=== PATIENT | female | born 1940 | race Caucasian/White ===

== ENCOUNTER 2017-08-07 12:16 | Inpatient (IN) | payer BC, OTHER ==
[~2017-08-07] VITALS: Ht 170.2 cm; Wt 68.9 kg
[~2017-08-07 12:16] MED LIST: ADVIN50/60 INH; ALBUAER19 INH; ASPI1TAB83 PO; CALCTAB5 PO; LINA1CAP2 PO; MULT1CAP7 PO; SIMV20TA2 PO
--- NOTE | 2017-08-07 13:03 | EMERGENCY ROOM VISIT NOTE ---
History Report prepared by Iqra: Yazan Simpson Under the Supervision of: Dr. Emilie Frey D.O. First contact with patient: 12:52 Chief Complaint: CONFUSION Stated Complaint: DISORIENTED, WORSENING PHYSICAL ABILITY History of Present Illness The patient is a 77 year old female with a history of Alzheimer's who presents to the Emergency Room from the [facility] with worsening confusion recently. Per the patient's daughter, she was called by the [facility] suggesting an evaluation due to the patient's rapid decline. They wanted to rule-out a mini stroke or UTI. The patient was incontinent of her bowels last night, which is not typically normal, but she did have colorectal cancer years ago. The patient was noted to have difficulty doing simple tasks, per the nursing staff. Per the patient's daughter, she has never seen the patient like this before. The patient denies any current pain, nausea, shortness of breath, or headaches. She recently gave up smoking a month ago, and has been noted to be coughing less since then. She saw her primary care physician yesterday for a physical. Pt's daughter denies any trauma/falls were reported to her by staff. Pt denies any falls. Source of History: patient, family, nursing staff Onset: Recently Position: other (global - confusion) Symptom Intensity: difficulty doing simple tasks Timing: worsening Associated Symptoms: No headache, No SOB, No nausea Note: Associated symptoms: Incontinent of bowels last night. Rapid decline. Denies current pain. Review of Systems See HPI for pertinent positives & negatives. A total of 10 systems reviewed and were otherwise negative. Past Medical & Surgical Medical Problems: (1) Alzheimer disease (2) Cancer (3) COPD (chronic obstructive pulmonary disease) (4) Hemorrhagic stroke Family History Family history omitted secondary to patient's advanced age. Social History Smoking Status: Former Smoker Alcohol Use: occasionally Drug Use: none Housing Status: care home Occupation Status: retired Current/Historical Medications Scheduled Donepezil HCl (Donepezil HCl), 10 MG PO DAILY Multiple Vitamins W/ Minerals (Multi For Her 50+), PO DAILY Allergies Coded Allergies: No Known Allergies (Unverified , 03/10/15) Physical Exam Vital Signs Date Time Temp Pulse Resp B/P (MAP) Pulse Ox O2 Delivery O2 Flow Rate FiO2 08/07/17 14:00 78 20 142/73 99 Room Air 08/07/17 12:23 36.8 89 16 110/72 98 Room Air Physical Exam GENERAL: alert, well appearing, well nourished, no distress, non-toxic, no evidence of trauma EYE EXAM: normal conjunctiva, PERRL and EOM's grossly intact OROPHARYNX: no exudate, no erythema, lips, buccal mucosa, and tongue normal and mucous membranes are moist NECK: supple, no nuchal rigidity, no adenopathy, non-tender LUNGS: Decreased breath sounds, no wheezes rhonchi or rales. Normal chest wall mechanics HEART: no murmurs, S1 normal and S2 normal ABDOMEN: abdomen soft, non-tender, normo-active bowel sounds, no masses, no rebound or guarding. BACK: Back is symmetrical on inspection and there is no deformity, no midline tenderness, no CVA tenderness. SKIN: no rashes and no bruising UPPER EXTREMITIES: upper extremities are grossly normal. Normal range of motion. Normal pulses. LOWER EXTREMITIES: No pitting edema. Normal range of motion. Normal pulses. NEURO EXAM: Normal sensorium, cranial nerves II-XII grossly intact, normal speech, no gross weakness of arms, no gross weakness of legs. No drift. Mild trouble with finger to nose bilaterally. Gross sensation intact. Medical Decision & Procedures ER Provider Diagnostic Interpretation: Radiology results have been interpreted by the radiologist and reviewed by me. CT HEAD WITHOUT CONTRAST (CT) CLINICAL HISTORY: AMS COMPARISON STUDY: No previous studies for comparison. TECHNIQUE: Axial CT of the brain is performed from the vertex to the skull base. IV contrast was not administered for this examination. A dose lowering technique was utilized adhering to the principles of ALARA. CT DOSE: 623.48 mGy.cm FINDINGS: There is a 45 mm hemorrhage in the left posterior parietal region. There is surrounding vasogenic edema. There is mass effect on the adjacent ventricle. There is no significant midline shift. There is equivocal punctate hemorrhage within the right parietal vertex. Hemorrhage into a pre-existing lesion cannot be excluded. MRI is recommended in follow-up. There are patchy white matter hypodensities likely on a small vessel basis. There is no evidence of pathologic ventricular dilatation. There is no evidence of acute sinusitis IMPRESSION: 1. 4.5 cm hemorrhage in the left posterior parietal region with surrounding edema. In addition there is an equivocal punctate hemorrhages in the right parietal vertex. Hemorrhage into a pre-existing lesion cannot be excluded. An MRI is recommended in follow-up. Electronically signed by: Bridger Sims M.D. 08/07/2017 1:46 PM Dictated Date/Time: 08/07/2017 1:42 PM CHEST ONE VIEW PORTABLE CLINICAL HISTORY: cough, ams COMPARISON STUDY: CT scan performed January 2015 FINDINGS: The heart is normal in size. There is radiographic evidence of pulmonary emphysema. There is a 33 mm left midlung zone nodular airspace opacity. This could be inflammatory or neoplastic. If the patient has signs and symptoms, consistent with pneumonia, then short-term radiographic follow-up subsequent to antibiotic therapy is recommended. Alternatively, CT scanning could be obtained. There are no pleural effusions. IMPRESSION: 1. Indeterminate 33 mm nodular airspace opacity within the left midlung zone. This could be inflammatory or neoplastic. Electronically signed by: Bridger Sims M.D. 08/07/2017 2:11 PM Dictated Date/Time: 08/07/2017 2:06 PM Laboratory Results Test 08/07/17 13:25 08/07/17 14:10 Immature Granulocyte % (Auto) 0.1 % White Blood Count 7.13 K/uL (4.8-10.8) Red Blood Count 4.88 M/uL (4.2-5.4) Hemoglobin 14.4 g/dL (12.0-16.0) Hematocrit 43.3 % (37-47) Mean Corpuscular Volume 88.7 fL (80-100) Mean Corpuscular Hemoglobin 29.5 pg (25-34) Mean Corpuscular Hemoglobin Concent 33.3 g/dl (32-36) Platelet Count 221 K/uL (130-400) Mean Platelet Volume 9.9 fL (7.4-10.4) Neutrophils (%) (Auto) 68.8 % Lymphocytes (%) (Auto) 16.3 % Monocytes (%) (Auto) 13.5 % Eosinophils (%) (Auto) 1.0 % Basophils (%) (Auto) 0.3 % Neutrophils # (Auto) 4.91 K/uL (1.4-6.5) Lymphocytes # (Auto) 1.16 K/uL (1.2-3.4) Monocytes # (Auto) 0.96 K/uL (0.11-0.59) Eosinophils # (Auto) 0.07 K/uL (0-0.5) Basophils # (Auto) 0.02 K/uL (0-0.2) Immature Granulocyte # (Auto) 0.01 K/uL (0.00-0.02) Prothrombin Time 10.7 SECONDS (9.0-12.0) Prothromb Time International Ratio 1.0 (0.9-1.1) Lactic Acid Level 2.1 mmol/L (0.4-2.0) Magnesium Level 2.1 mg/dl (1.8-2.4) Total Bilirubin 0.3 mg/dl (0.2-1) Aspartate Amino Transf (AST/SGOT) 12 U/L (15-37) Alanine Aminotransferase (ALT/SGPT) 20 U/L (12-78) Alkaline Phosphatase 75 U/L (45-117) Troponin I < 0.015 ng/ml (0-0.045) Total Protein 7.8 gm/dl (6.4-8.2) Albumin 3.7 gm/dl (3.4-5.0) Globulin 4.1 gm/dl (2.5-4.0) Albumin/Globulin Ratio 0.9 (0.9-2) Lipase 168 U/L (73-393) Thyroid Stimulating Hormone (TSH) 0.715 uIu/ml (0.300-4.500) Urine Color YELLOW Urine Appearance CLEAR (CLEAR) Urine pH 5.0 (4.5-7.5) Urine Specific [place] 1.027 (1.000-1.030) Urine Protein NEG (NEG) Urine Glucose (UA) NEG (NEG) Urine Ketones NEG (NEG) Urine Occult Blood 1+ (NEG) Urine Nitrite POS (NEG) Urine Bilirubin NEG (NEG) Urine Urobilinogen NEG (NEG) Urine Leukocyte Esterase TRACE (NEG) Urine WBC (Auto) 5-10 /hpf (0-5) Urine RBC (Auto) 0-4 /hpf (0-4) Urine Hyaline Casts (Auto) 1-5 /lpf (0-5) Urine Epithelial Cells (Auto) >30 /lpf (0-5) Urine Bacteria (Auto) 4+ (NEG) Laboratory results per my review. ECG Indication: altered mental status Rate (beats per minute): 69 Rhythm: normal sinus Findings: no acute ischemic change, no ectopy, other (normal axis, normal intervals) ED Course 1254: The patient was evaluated in room C12B. A complete history and physical exam was performed. 1400: I reevaluated the patient and updated her and her daughter on the head bleed. They do not want to pursue any neurosurgical options if need-be. The patient and family express understanding and agreement with the treatment plan. The patient will be evaluated for further treatment. 1412: I reviewed the patient's case with Dr. Irina JEFFREY care tech. He will evaluate the patient for further management. Medical Decision Differential diagnoses includes but is not limited to toxic, metabolic, infectious, traumatic, cardiac, neurologic, hematologic, psychiatric and inflammatory etiologies. Patient actually now with a history of confusion secondary to her Alzheimer's residing a local care home facility. All results discussed with patient and family at bedside. Discussed with them possible evolution of condition or deterioration. They state that this patient's condition worsen they would not want neurosurgery aggressive interventions. Patient a symptomatically at this time, no focal neuro deficits, no complaints of headache, vision changes, dizziness or vomiting. Are comfortable with the patient being monitored here. Discussed with medicine for evaluation for admission. Medication Reconcilliation Current Medication List: was personally reviewed by me Blood Pressure Screening Patient's blood pressure: Normal blood pressure Consults Time Called: 1410 Consulting Physician: Dr. Irina JEFFREY care tech Returned Call: 1412 I reviewed the patient's case with Dr. Irina JEFFREY care tech. He will evaluate the patient for further management. Impression Primary Impression: Intracranial hemorrhage Additional Impressions: Altered mental status Alzheimer disease Critical Care I have personally spent 45 minutes of critical care time in the direct management of this patient. This includes bedside care, interpretation of diagnostic studies, and testing, discussion with consultants, patient, and family members, and other required patient management activities. This 45 minutes is in excess of all separately billable procedures. Scribe Attestation The scribe's documentation has been prepared under my direction and personally reviewed by me in its entirety. I confirm that the note above accurately reflects all work, treatment, procedures, and medical decision making performed by me. Departure Information Dispostion Being Evaluated By Hospitalist Referrals Kings Muro M.D. (PCP) Patient Instructions [facility] Problem Qualifiers Additional Impressions: Altered mental status Altered mental status type: unspecified Qualified Codes: R41.82 - Altered mental status, unspecified Alzheimer disease Alzheimer's disease onset: unspecified onset Dementia behavioral disturbance : without behavioral disturbance Qualified Codes: G30.9 - Alzheimer's disease , unspecified; F02.80 - Dementia in other diseases classified elsewhere without behavioral disturbance
[2017-08-07 13:39] LABS: BASO % 0.3 %; BASO ABS # 0.02 K/uL (0-0.2); COMPLETE YES; HEMATOCRIT 43.3 % (37-47); IG% 0.1 %; LYMPH % 16.3 %; LYMPH ABS # 1.16 K/uL (1.2-3.4); MEAN CELL VOLUME 88.7 fL (80-100); MEAN CORPUSCULAR HEMOGLOBIN 29.5 pg (25-34); MEAN CORPUSCULAR HGB CONC 33.3 g/dl (32-36); MEAN PLATELET VOLUME 9.9 fL (7.4-10.4); MONO % 13.5 %; NEUT % 68.8 %; PLATELET COUNT 221 K/uL (130-400); RED BLOOD COUNT 4.88 M/uL (4.2-5.4); WHITE BLOOD COUNT 7.13 K/uL (4.8-10.8)
--- NOTE | 2017-08-07 13:47 | DIAGNOSTIC IMAGING REPORT ---
CT HEAD WITHOUT CONTRAST (CT) CLINICAL HISTORY: AMS COMPARISON STUDY: No previous studies for comparison. TECHNIQUE: Axial CT of the brain is performed from the vertex to the skull base. IV contrast was not administered for this examination. A dose lowering technique was utilized adhering to the principles of ALARA. CT DOSE: 623.48 mGy.cm FINDINGS: There is a 45 mm hemorrhage in the left posterior parietal region. There is surrounding vasogenic edema. There is mass effect on the adjacent ventricle. There is no significant midline shift. There is equivocal punctate hemorrhage within the right parietal vertex. Hemorrhage into a pre-existing lesion cannot be excluded. MRI is recommended in follow-up. There are patchy white matter hypodensities likely on a small vessel basis. There is no evidence of pathologic ventricular dilatation. There is no evidence of acute sinusitis IMPRESSION: 1. 4.5 cm hemorrhage in the left posterior parietal region with surrounding edema. In addition there is an equivocal punctate hemorrhages in the right parietal vertex. Hemorrhage into a pre-existing lesion cannot be excluded. An MRI is recommended in follow-up. Electronically signed by: Bridger Sims M.D. 08/07/2017 1:46 PM Dictated Date/Time: 08/07/2017 1:42 PM
[2017-08-07 13:50] LABS: PROTHROMBIN TIME (PATIENT) 10.7 SECONDS (9.0-12.0)
[2017-08-07 13:56] LABS: ALT/SGPT 20 U/L (12-78); AST/SGOT 12 U/L (15-37); BLOOD UREA NITROGEN 21 mg/dl (7-18); BUN/CREATININE RATIO 20.9 (10-20); CALCIUM 9.5 mg/dl (8.5-10.1); CARBON DIOXIDE 27 mmol/L (21-32); CHLORIDE 105 mmol/L (98-107); CREATININE 0.98 mg/dl (0.60-1.20); GLUCOSE 146 mg/dl (70-99); MAGNESIUM 2.1 mg/dl (1.8-2.4); POTASSIUM 3.9 mmol/L (3.5-5.1); SODIUM 140 mmol/L (136-145)
[2017-08-07] MEDS ORDERED: ARC10 PO (14:04)
[2017-08-07 14:07] LABS: ALB/GLOB RATIO 0.9 (0.9-2); ALKALINE PHOSPHATASE 75 U/L (45-117); THYROID STIMULATING HORMONE 0.715 uIu/ml (0.300-4.500)
--- NOTE | 2017-08-07 14:12 | DIAGNOSTIC IMAGING REPORT ---
CHEST ONE VIEW PORTABLE CLINICAL HISTORY: cough, ams COMPARISON STUDY: CT scan performed January 2015 FINDINGS: The heart is normal in size. There is radiographic evidence of pulmonary emphysema. There is a 33 mm left midlung zone nodular airspace opacity. This could be inflammatory or neoplastic. If the patient has signs and symptoms, consistent with pneumonia, then short-term radiographic follow-up subsequent to antibiotic therapy is recommended. Alternatively, CT scanning could be obtained. There are no pleural effusions. IMPRESSION: 1. Indeterminate 33 mm nodular airspace opacity within the left midlung zone. This could be inflammatory or neoplastic. Electronically signed by: Bridger Sims M.D. 08/07/2017 2:11 PM Dictated Date/Time: 08/07/2017 2:06 PM
[2017-08-07 14:28] LABS: URINE APPEARANCE CLEAR (CLEAR); URINE BILIRUBIN NEG (NEG); URINE COLOR YELLOW; URINE EPITHELIAL CELL AUTO >30 /lpf (0-5); URINE NITRITE POS (NEG); URINE SPECIFIC GRAVITY 1.027 (1.000-1.030); UROBILINOGEN NEG (NEG)
[2017-08-07 14:31] LABS: MANUAL MICROSCOPIC REQUIRED? NO; REVIEW REQ? NO
[2017-08-07] MEDS ORDERED: LORAZEPAM 0.5 MG TAB PO PRN (15:00)
[2017-08-07] MEDS ORDERED: LORAZEPAM 2 MG/ML 1 ML VIAL IV PRN ×2 (15:00)
[2017-08-07] MEDS ORDERED: HydrALAZINE HCL 20 MG/ML VIAL IV PRN (15:00)
[2017-08-07] MEDS ORDERED: ACETAMINOPHEN 325 MG TAB PO PRN (15:00)
[2017-08-07] MEDS ORDERED: ONDANSETRON INJ 2 MG/ML 2 ML VIAL IV PRN (15:00)
--- NOTE | 2017-08-07 15:00 | History and Physical ---
History & Physical Date & Time of Service: Aug 07, 2017 at 14:55 Chief Complaint: Disoriented, Worsening Physical Ability Primary Care Physician: Kings Muro M.D. History of Present Illness Patient arrives from the detention facility the company of her daughter the patient arrives to the change in mental state and not acting like herself. She has baseline dementia. Daughter said she noted some minor right leg dragging one day prior to admission. This is confirmed by mild right leg weakness and right hand dysmetria testing. The patient was found to have of 4.4 cm left parietal occipital hemorrhage. Discussion was had with the patient and her daughter regarding her lack of neurosurgical coverage here. The patient and her daughter both confirm that they would not wish to undergo any neurosurgical procedure and that if this stroke were 2 in danger or end her life they wish for her to be placed in comfort care. At this point in time the patient's deficits are small she is awake and oriented 2 speaking in full sentences and protecting her airway. Daughters at bedside and reconfirmed she is a DO NOT RESUSCITATE Past Medical/Surgical History Medical Problems: (1) Alzheimer disease Status: Chronic (2) Cancer Status: Resolved (3) COPD (chronic obstructive pulmonary disease) Status: Chronic Social History Smoking Status: Former Smoker Drug Use: none Occupational Status: retired Allergies Coded Allergies: No Known Allergies (Unverified , 03/10/15) Home Medications Scheduled Aspirin (Aspirin), 81 MG PO DAILY Donepezil HCl (Donepezil HCl), 10 MG PO DAILY Multiple Vitamins W/ Minerals (Multi For Her 50+), PO DAILY Simvastatin (Zocor), 20 MG PO QPM Review of Systems ROS: Her review of systems are questionable given her dementia well nourished well developed No double vision blurry vision No problems with speech or swallowing No palpitations, chest pain or pressure No Wheezing or breathing issues No abdominal pain nausea vomiting diarrhea changes in appetite or weight No burning urine urine frequency or changes in color No focal joint pain or muscle pain No skin rashes or oral lesions No unusual bruising or bleeding No focused back pain or numbness as mentioned the daughter has noticed she has had some right leg weakness No changes in memory but she has baseline deficit and her mild confusion is worse than usual Physical Exam Vital Signs Date Time Temp Pulse Resp B/P (MAP) Pulse Ox O2 Delivery O2 Flow Rate FiO2 08/07/17 14:00 78 20 142/73 99 Room Air 08/07/17 12:23 36.8 89 16 110/72 98 Room Air Diagnostics Laboratory Results Results Past 24 Hours Test 08/07/17 13:25 08/07/17 14:10 Range/Units White Blood Count 7.13 4.8-10.8 K/uL Red Blood Count 4.88 4.2-5.4 M/uL Hemoglobin 14.4 12.0-16.0 g/dL Hematocrit 43.3 37-47 % Mean Corpuscular Volume 88.7 80-100 fL Mean Corpuscular Hemoglobin 29.5 25-34 pg Mean Corpuscular Hemoglobin Concent 33.3 32-36 g/dl Platelet Count 221 130-400 K/uL Mean Platelet Volume 9.9 7.4-10.4 fL Neutrophils (%) (Auto) 68.8 % Lymphocytes (%) (Auto) 16.3 % Monocytes (%) (Auto) 13.5 % Eosinophils (%) (Auto) 1.0 % Basophils (%) (Auto) 0.3 % Neutrophils # (Auto) 4.91 1.4-6.5 K/uL Lymphocytes # (Auto) 1.16 1.2-3.4 K/uL Monocytes # (Auto) 0.96 0.11-0.59 K/uL Eosinophils # (Auto) 0.07 0-0.5 K/uL Basophils # (Auto) 0.02 0-0.2 K/uL RDW Standard Deviation 41.7 36.4-46.3 fL RDW Coefficient of Variation 12.9 11.5-14.5 % Immature Granulocyte % (Auto) 0.1 % Immature Granulocyte # (Auto) 0.01 0.00-0.02 K/uL Prothrombin Time 10.7 9.0-12.0 SECONDS Prothromb Time International Ratio 1.0 0.9-1.1 Sodium Level 140 136-145 mmol/L Potassium Level 3.9 3.5-5.1 mmol/L Chloride Level 105 98-107 mmol/L Carbon Dioxide Level 27 21-32 mmol/L Anion Gap 8.0 3-11 mmol/L Blood Urea Nitrogen 21 7-18 mg/dl Creatinine 0.98 0.60-1.20 mg/dl Est Creatinine Clear Calc Drug Dose 46.0 ml/min Estimated GFR () 64.0 Estimated GFR (Non- 55.3 BUN/Creatinine Ratio 20.9 10-20 Random Glucose 146 70-99 mg/dl Lactic Acid Level 2.1 0.4-2.0 mmol/L Calcium Level 9.5 8.5-10.1 mg/dl Magnesium Level 2.1 1.8-2.4 mg/dl Total Bilirubin 0.3 0.2-1 mg/dl Aspartate Amino Transf (AST/SGOT) 12 15-37 U/L Alanine Aminotransferase (ALT/SGPT) 20 12-78 U/L Alkaline Phosphatase 75 45-117 U/L Troponin I < 0.015 0-0.045 ng/ml Total Protein 7.8 6.4-8.2 gm/dl Albumin 3.7 3.4-5.0 gm/dl Globulin 4.1 2.5-4.0 gm/dl Albumin/Globulin Ratio 0.9 0.9-2 Lipase 168 73-393 U/L Thyroid Stimulating Hormone (TSH) 0.715 0.300-4.500 uIu/ml Urine Color YELLOW Urine Appearance CLEAR CLEAR Urine pH 5.0 4.5-7.5 Urine Specific [place] 1.027 1.000-1.030 Urine Protein NEG NEG Urine Glucose (UA) NEG NEG Urine Ketones NEG NEG Urine Occult Blood 1+ NEG Urine Nitrite POS NEG Urine Bilirubin NEG NEG Urine Urobilinogen NEG NEG Urine Leukocyte Esterase TRACE NEG Urine WBC (Auto) 5-10 0-5 /hpf Urine RBC (Auto) 0-4 0-4 /hpf Urine Hyaline Casts (Auto) 1-5 0-5 /lpf Urine Epithelial Cells (Auto) >30 0-5 /lpf Urine Bacteria (Auto) 4+ NEG Diagnostic Radiology Hemorrhagic infarct seen on head CT other (? left lung pneumonitis vs mass) Normal EKG Impression Assessment and Plan 69-year-old female with left posterior hemorrhage felt to be acute likely started yesterday with some minor gross neurological changes Given the family's wishes for conservative management will admit the patient our facility will have neurology PT and OT evaluation will control her blood pressure with as needed hydralazine will monitor her for further decline in mental state. We'll hold her daily aspirin For dementia we'll continue her Aricept at this point time there seems to be no other reason for any metabolic encephalopathy such as infection will continue to monitor for the same For DVT prevention chemical prophylaxis is contraindicated to use SCDs A lactic acid was drawn likely for workup of encephalopathy from infection this was elevated at 2.1 I do not feel the patient clinically as surgeries or sepsis and I will not repeat this this could be from cerebrovascular injury Her condition is tenuous it's unclear whether she will survive or worsen overnight the family is understanding acceptable if this stroke does progress VTE Prophylaxis VTE Risk Assessment Done? Y/N: Yes Risk Level: Moderate
[2017-08-07] MEDS ORDERED: LORAZEPAM INJ 1 MG in SYRINGE 0.5 ML IV PRN (15:30)
[2017-08-07] MEDS ORDERED: LORAZEPAM INJ 0.5 MG in SYRINGE 0.75 ML IV PRN (15:30)
[2017-08-07 16:05] VITALS: O2SAT 97; Ht 170.2 cm; Wt 68.9 kg
[2017-08-07 16:52] VITALS: BP 144/75; PULSE 70; TEMP 36.4; O2SAT 99
[2017-08-07 20:39] VITALS: BP 130/87; PULSE 98; TEMP 36.3; O2SAT 99
[2017-08-07] MEDS ORDERED: SIMVASTATIN 20 MG TAB PO SCH (21:00)
[2017-08-08 07:22] VITALS: BP 144/78; PULSE 73; TEMP 36; O2SAT 97
[2017-08-08 07:29] LABS: HEMATOCRIT 40.9 % (37-47); MEAN CELL VOLUME 88.7 fL (80-100); MEAN CORPUSCULAR HEMOGLOBIN 29.5 pg (25-34); MEAN CORPUSCULAR HGB CONC 33.3 g/dl (32-36); MEAN PLATELET VOLUME 10.2 fL (7.4-10.4); PLATELET COUNT 215 K/uL (130-400); RED BLOOD COUNT 4.61 M/uL (4.2-5.4); WHITE BLOOD COUNT 5.98 K/uL (4.8-10.8)
[2017-08-08 07:54] LABS: BUN/CREATININE RATIO 15.8 (10-20); CALCIUM 9.3 mg/dl (8.5-10.1); CREATININE 0.95 mg/dl (0.60-1.20); POTASSIUM 3.7 mmol/L (3.5-5.1)
[2017-08-08] MEDS ORDERED: DONEPEZIL HCL 10 MG TAB PO SCH (08:00)
[2017-08-08] MEDS ORDERED: PNEUMOCOCCAL POLYSACCHARIDES 25 MCG/0.5 ML VIAL/SYR IM. ONE (08:00)
[2017-08-08] MEDS ORDERED: PNEUMOCOCCAL ADMINISTRATION CHARGE ONE (08:00)
--- NOTE | 2017-08-08 08:25 | Neurology Consultation ---
Neurology Consultation Date of Consultation: Aug 08, 2017. Attending Physician: Eugenio Arevalo M.D. Primary Care Physician: Kings Muro M.D. Reason for Consultation: Patient is a 77 year ol, who i was asked to see at the request of Dr. Arevalo , for neurologic evaluation regarding new onset intracerebral hemorrhage. History of Present Illness Source: patient, family, caregiver, hospital records The patient really has no idea why she is here, but does know she gets confused. History is provided by the daughter, Di, who is present at bedside. 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 Because of slow deterioration of function and memory she has been at the [facility] at [facility] the last 1 and half years. She is on low-dose donepezil 10 milligrams daily and has been on 81 milligram aspirin tablet daily. About 16 years ago the patient had a history of colorectal cancer and had surgery, chemotherapy and radiation therapy. Apparently there has been no recurrence. CT scan of the chest January of 2015 showed a questionable 5 millimeter right lower lobe base nodule. There was an adrenal nodule as well. Patient's daughter believes the patient has had some increased confusion and decreased function particularly with walking over the last 6 days or so. Staff at the [facility] noted increased confusion and decreased ability to do usual simple tasks on 08-07. She had no complaint of pain or headache and had no new speech or vision problem. Apparently she had some bowel incontinence in the evening of 08-06 which was unusual for her. Her right leg was noted to be dragging some. On 08-07 at 1223 hours, in the ER, BP was 110/72, P89 and regular, T36.8, R16, and O2 sat 98%. She was confused but her exam was grossly unremarkable. CT of the head showed a 4.5 cm hemophagia lesion (subacute) in the left posterior parietal area with edema. There was also an equivocal punctate area of hemorrhage in the right parietal vertex (not definite). CXR showed a L mid-lung nodule. CBC, CMP, TSH, and liver were unremarkable She was made a DNR( decision helped with daughter Di). She has had no other issues overnight and this morning has no complain to pain, headache, vision issues, dizziness, weakness, numbness, or incontinence. I reviewed the CT scan films with the patient and her daughter as well as with Dr. Butler Past Medical/Surgical History Medical Problems: (1) Altered mental status Status: Acute (2) Alzheimer disease Status: Chronic (3) Intracranial hemorrhage Status: Acute History of senile dementia of the Alzheimer's type for 7 years. COPD History of colorectal cancer post surgery, radiation, and chemotherapy 16 years ago. No history of hypertension, diabetes, heart disease, or stroke Post appendectomy Family History Patient herself knows little to nothing of her family's past medical history. Apparently her mother in the 80s of uncertain causes. Her father of strokes. Social History The patient was a lifelong cigarette smoker quitting about 1 month ago. The frequency of cigarette smoking varied over time. Patient has occasional drink of alcohol. She has never had heavy alcohol use. 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 She is not sure when she retired. Smoking Status: Former smoker Smokeless Tobacco Use: No Alcohol Use: occasionally Drug Use: none Marital Status: single Housing Status: assisted Occupation Status: retired Allergies Coded Allergies: No Known Allergies (Unverified , 03/10/15) Current Inpatient Medications Current Inpatient Medications Medications (Trade) Dose Ordered Sig/Sully Route Start Time Stop Time Status Last Admin Dose Admin Acetaminophen (Tylenol Tab) 650 mg Q4H PRN PO 08/07/17 15:00 09/06/17 14:59 Ondansetron HCl (Zofran Inj) 4 mg Q6H PRN IV 08/07/17 15:00 09/06/17 14:59 Donepezil HCl (Aricept Tab) 10 mg DAILY PO 08/08/17 08:00 09/07/17 08:59 Simvastatin (Zocor Tab) 20 mg QPM PO 08/07/17 21:00 09/06/17 20:59 08/07/17 20:26 20 MG Hydralazine HCl (HydrALAZINE INJ) 10 mg Q4H PRN IV 08/07/17 15:00 09/06/17 14:59 Lorazepam (Ativan Inj) 1 mg Q4H PRN IV 08/07/17 15:00 09/06/17 14:59 Lorazepam (Ativan Inj) 0.5 mg Q4H PRN IV 08/07/17 15:00 09/06/17 14:59 Lorazepam (Ativan Tab) 0.5 mg Q6 PRN PO 08/07/17 15:00 09/06/17 14:59 Lorazepam 0.5 mg/ Syringe 1 ml @ 1 mls/min Q4H PRN IV 08/07/17 15:30 09/06/17 15:29 Lorazepam 1 mg/ Syringe 1 ml @ 1 mls/min Q4H PRN IV 08/07/17 15:30 09/06/17 15:29 Review of Systems Constitutional: No fever, No weakness, No fatigue Eyes: No worsening of vision, No diplopia ENT: No hearing loss, No sore throat, No tinnitus, No trouble swallowing Respiratory: + cough, No shortness of breath Cardiovascular: No chest pain, No palpitations Abdomen: No pain, No nausea Musculoskeletal: No joint pain, No muscle pain Genitourinary - Female: No dysuria, No urinary incontinence Neurologic: + memory loss, + balance problems, No weakness, No numbness/ tingling, No vertigo Psychiatric: No depression symptoms, No anxiety Endocrine: No fatigue Hematologic / Lymphatic: No abnormal bleeding/bruising Integumentary: No rash Allergic / Immunologic: No hives Physical Exam Vital Signs (Past 24 Hrs): Date Time Temp Pulse Resp B/P (MAP) Pulse Ox O2 Delivery O2 Flow Rate FiO2 08/08/17 07:22 36.0 73 20 144/78 (100) 97 Room Air 08/08/17 00:00 Room Air 08/07/17 20:39 36.3 98 20 130/87 (101) 99 Room Air 08/07/17 16:52 36.4 70 18 144/75 (98) 99 Room Air 08/07/17 16:05 36.6 74 16 129/70 97 08/07/17 16:05 97 Room Air 08/07/17 15:04 79 16 142/76 100 Room Air 08/07/17 14:00 78 20 142/73 99 Room Air 08/07/17 12:23 36.8 89 16 110/72 98 Room Air Patient is right-handed. The patient is awake and alert. Speech is normal without aphasia or dysarthria. Mood is very pleasant and affect is appropriate. She has extremely poor Long, intermediate, and short-term memory. She knew her name and the state she was born in as well as the fact that she lived in [place]. She knew her daughter's name. She knew how many dimes in a dollar and left from right. She did not know her age any facts about how long she has lived at the [facility], the year, the month, the day, the date, or the fact that she was even in the hospital now. The discs are sharp with positive venous pulsations. There are no exudates, hemorrhages, or blood vessel changes seen. Pupils are 3mm bilaterally and reactive to light. Extraocular eye muscles are intact without nystagmus. Visual acuity and visual bates seem normal grossly to confrontation. There are no deficits to sensation of the face bilaterally. Corneal reflexes are positive bilaterally. Facial strength and symmetry is normal bilaterally. Hearing seems intact grossly to voice and finger rub. Palate moves well without asymmetry. There is normal sternocleidomastoid and trapezius strength bilaterally. Tongue is midline with good strength bilaterally. Neck is with full range of motion without discomfort. There are no cervical bruits. There are no cranial or ocular bruits. Heart is without murmur. Cervical, thoracic, and lumbar spine are nontender to palpation. Gait i narrow based but unstable with some dragging of the right leg. With outstretched arms there is no drift. There are no resting, postural, or action tremors. There is no ataxia with [id number] testing. There is good facility in the hands. There are no abnormal involuntary movements noted. Motor strength is 5/5 diffusely in the arms bilaterally including deltoids, biceps, brachioradialis, wrist flexors and extensors, cut order hand, and intrinsic hand muscles. Motor strength is 5/5 diffusely in the legs bilaterally including hip flexors, quadriceps, hamstring, gastrocnemius, tibialis anterior, tibialis posterior, and peroneii muscles bilaterally. Toe extensors are normal and there is good bulk in the extensor digitorum brevis muscle bilaterally. The limbs have good tone without rigidity or spasticity, and there is no atrophy noted. Muscle bulk is normal, there is no tenderness, no myotonia noted to percussion, and no fasciculations seen. Sensory examination is intact to pin and touch throughout all four limbs. Reflexes are 1/4 in the biceps, triceps, brachioradialis, quadriceps, and Achilles tendons bilaterally. Toes are downgoing with plantar stimulation bilaterally. Peripheral pulses are present and of normal quality distally in all four limbs. There is no peripheral edema noted. Laboratory Results Past 24 Hours: 08/08/17 06:53 08/08/17 06:53 Test 08/07/17 13:25 08/07/17 14:10 08/08/17 06:53 Immature Granulocyte % (Auto) 0.1 % White Blood Count 7.13 K/uL (4.8-10.8) Red Blood Count 4.88 M/uL (4.2-5.4) 4.61 M/uL (4.2-5.4) Hemoglobin 14.4 g/dL (12.0-16.0) Hematocrit 43.3 % (37-47) Mean Corpuscular Volume 88.7 fL (80-100) 88.7 fL (80-100) Mean Corpuscular Hemoglobin 29.5 pg (25-34) 29.5 pg (25-34) Mean Corpuscular Hemoglobin Concent 33.3 g/dl (32-36) 33.3 g/dl (32-36) Platelet Count 221 K/uL (130-400) Mean Platelet Volume 9.9 fL (7.4-10.4) 10.2 fL (7.4-10.4) Neutrophils (%) (Auto) 68.8 % Lymphocytes (%) (Auto) 16.3 % Monocytes (%) (Auto) 13.5 % Eosinophils (%) (Auto) 1.0 % Basophils (%) (Auto) 0.3 % Neutrophils # (Auto) 4.91 K/uL (1.4-6.5) Lymphocytes # (Auto) 1.16 K/uL (1.2-3.4) Monocytes # (Auto) 0.96 K/uL (0.11-0.59) Eosinophils # (Auto) 0.07 K/uL (0-0.5) Basophils # (Auto) 0.02 K/uL (0-0.2) Immature Granulocyte # (Auto) 0.01 K/uL (0.00-0.02) Prothrombin Time 10.7 SECONDS (9.0-12.0) Prothromb Time International Ratio 1.0 (0.9-1.1) Lactic Acid Level 2.1 mmol/L (0.4-2.0) Magnesium Level 2.1 mg/dl (1.8-2.4) Total Bilirubin 0.3 mg/dl (0.2-1) Aspartate Amino Transf (AST/SGOT) 12 U/L (15-37) Alanine Aminotransferase (ALT/SGPT) 20 U/L (12-78) Alkaline Phosphatase 75 U/L (45-117) Troponin I < 0.015 ng/ml (0-0.045) Total Protein 7.8 gm/dl (6.4-8.2) Albumin 3.7 gm/dl (3.4-5.0) Globulin 4.1 gm/dl (2.5-4.0) Albumin/Globulin Ratio 0.9 (0.9-2) Lipase 168 U/L (73-393) Thyroid Stimulating Hormone (TSH) 0.715 uIu/ml (0.300-4.500) Urine Color YELLOW Urine Appearance CLEAR (CLEAR) Urine pH 5.0 (4.5-7.5) Urine Specific [place] 1.027 (1.000-1.030) Urine Protein NEG (NEG) Urine Glucose (UA) NEG (NEG) Urine Ketones NEG (NEG) Urine Occult Blood 1+ (NEG) Urine Nitrite POS (NEG) Urine Bilirubin NEG (NEG) Urine Urobilinogen NEG (NEG) Urine Leukocyte Esterase TRACE (NEG) Urine WBC (Auto) 5-10 /hpf (0-5) Urine RBC (Auto) 0-4 /hpf (0-4) Urine Hyaline Casts (Auto) 1-5 /lpf (0-5) Urine Epithelial Cells (Auto) >30 /lpf (0-5) Urine Bacteria (Auto) 4+ (NEG) RDW Standard Deviation 42.2 fL (36.4-46.3) RDW Coefficient of Variation 13.0 % (11.5-14.5) Anion Gap 7.0 mmol/L (3-11) Est Creatinine Clear Calc Drug Dose 47.5 ml/min Estimated GFR () 66.5 Estimated GFR (Non- 57.4 BUN/Creatinine Ratio 15.8 (10-20) Calcium Level 9.3 mg/dl (8.5-10.1) Imaging CT HEAD WITHOUT CONTRAST (CT) CLINICAL HISTORY: AMS COMPARISON STUDY: No previous studies for comparison. TECHNIQUE: Axial CT of the brain is performed from the vertex to the skull base. IV contrast was not administered for this examination. A dose lowering technique was utilized adhering to the principles of ALARA. CT DOSE: 623.48 mGy.cm FINDINGS: There is a 45 mm hemorrhage in the left posterior parietal region. There is surrounding vasogenic edema. There is mass effect on the adjacent ventricle. There is no significant midline shift. There is equivocal punctate hemorrhage within the right parietal vertex. Hemorrhage into a pre-existing lesion cannot be excluded. MRI is recommended in follow-up. There are patchy white matter hypodensities likely on a small vessel basis. There is no evidence of pathologic ventricular dilatation. There is no evidence of acute sinusitis IMPRESSION: 1. 4.5 cm hemorrhage in the left posterior parietal region with surrounding edema. In addition there is an equivocal punctate hemorrhages in the right parietal vertex. Hemorrhage into a pre-existing lesion cannot be excluded. An MRI is recommended in follow-up. Electronically signed by: Bridger Sims M.D. 08/07/2017 1:46 PM Impression 1. Acute encephalopathy on top of a background of senile dementia of the Alzheimer's type for 7 years. Patient seems to be at baseline mental status this morning according to the daughter. She is very pleasant cooperative but has very poor memory. Neurologic examination shows abnormal gait which is new but she does not have other focal neurologic or meningeal signs, The etiology of the worsening mental status and physical functioning is the HEAVY CLEANER hemorrhage with edema. 2. Subacute to chronic right parietal hemorrhagic lesion with edema. This hemorrhage is not acute in my opinion based on its characteristics. There is another subacute hemorrhagic lesion in the high right parietal vertex of small nature with some edema. Overall, I am concerned about HEAVY CLEANER metastases with hemorrhagic transformation. If true, this could be from the lung as chest x-ray showed a lesion. 3. Abnormal chest x-ray with possible mass. Plan 1. MRI of the brain with without contrast to evaluate for metastatic lesions. 2. Consider CT scan of the chest 3. Discontinue aspirin 4. She is a fall risk and needs a walker and probable physical therapy. 5. Consider B12 and folate levels. 6. Continue donepezil 10 milligrams daily. As an outpatient, depending on her clinical course we could consider increasing this to 10 milligrams twice a day and add Namenda 10 milligrams twice a day in order to maximize her senile dementia of the Alzheimer's type treatment. Again, all these medication changes can be done as an outpatient. I spoke with Dr. Butler regarding this case including differential diagnosis and treatment options. Overall, I spent 105 minutes with the patient including records review, film review, discussion with the patient and daughter at bedside, and discussion with nursing staff and Dr. Butler regarding her case
[2017-08-08] MEDS ORDERED: GADAVIST IV PRN (12:30)
--- NOTE | 2017-08-08 12:41 | DIAGNOSTIC IMAGING REPORT ---
BRAIN COMBO CLINICAL HISTORY: compare to lesions on CT, ?mets w bleed? Mental status changes COMPARISON STUDY: CT 08/07/2017 TECHNIQUE: Utilizing a 1.5 Maira magnet and dedicated coil, multiplanar, multiecho imaging of the brain was performed pre and postcontrast administration. IV administration of 9.0 mL of Gadavist contrast was uneventful. FINDINGS: Findings of an acute/subacute hemorrhage measuring 4.5 cm left posterior parietal lobe. Mild localized reactive edema. No significant midline shift. Partial effacement occipital horn left lateral ventricle. Moderate to rather significant chronic small vessel change throughout both cerebral hemispheres. Sella and parasellar regions are unremarkable. Internal artery canals are symmetric. Small additional focus of increased signal right superior parietal lobe felt to be secondary to a small benign venous angioma. Postcontrast images demonstrate a trace of peripheral enhancement of the posterior left parietal hemorrhagic focus. This may relate relate to reactive gliosis. A small focus of postcontrast enhancement posterior zaida is also seen on the T1 images and is not felt to represent an enhancing lesion. Mild ventricular prominence presumably chronic. Transaxial T1 images suggests a possible high signal focus posterior left parietal lobe. There is no significant postcontrast enhancement at this site. IMPRESSION: 1. 4.5 cm fluid/blood containing lesion posterior left parietal lobe. 2. The contained hemorrhage appears to be subacute 3. Additional findings and base of the patient's prior CT study appear to relate to a venous angioma over the right parietal convexity. 4. All of these findings may relate to a simple hemorrhagic focus, the possibility of hemorrhage into a pre-existing cystic neoplasm is not excluded. 5. Neurosurgical consultation or close repeat scanning is suggested The above report was generated using voice recognition software. It may contain grammatical, syntax or spelling errors. Electronically signed by: Maxim Fonseca M.D. 08/08/2017 12:39 PM Dictated Date/Time: 08/08/2017 12:26 PM
--- NOTE | 2017-08-08 12:57 | DIAGNOSTIC IMAGING REPORT ---
(CHEST) THORAX WITHOUT CLINICAL HISTORY: 77 years-old Female presenting with compare to CXR, ?mass. TECHNIQUE: Multidetector CT imaging of the chest was performed without the use of intravenous contrast. IV contrast: None. A dose lowering technique was used consistent with the principles of ALARA (as low as reasonably achievable). COMPARISON: 08/07/2017 and 02/10/2015. CT DOSE (mGy.cm): The estimated cumulative dose is 231.72 mGy.cm. FINDINGS: Transport Conductor topogram: Left midlung opacity. On soft tissue windows, normal thyroid and thoracic inlet. No axillary, supraclavicular, or mediastinal lymphadenopathy. Evaluation of the jean limited without intravenous contrast. Coronary artery and aortic valve calcification. Normal heart size. No pericardial or pleural effusion. Hepatic steatosis. Calcification in the kidneys appears to primarily consist of renal vascular calcification. Hyperdense material in the collecting systems may represent prior contrast administration or debris (series 4 image 306). Nonspecific nodular thickening of the left adrenal gland. An underlying nodule in the medial limb is likely present measuring 19 mm and consistent with a benign adenoma by density. On lung windows, spiculated cavitary nodule in the left upper lobe, which measures 2.6 cm. Spiculations extend nearly to the overlying pleura and towards the superior portion of the left jean. Bronchial wall thickening, worst in the left upper lobe. Dependent changes likely atelectasis. No other focal nodule or infiltrate. Underlying emphysema. On bone windows, normal osseous structures. IMPRESSION: 1. Cavitary spiculated 2.6 cm nodule in the left upper lobe, which is consistent with primary bronchogenic carcinoma. No additional nodule. Evaluation for hilar lymphadenopathy limited due to noncontrast technique. No gross evidence of mediastinal lymphadenopathy. 2. Hepatic steatosis. 3. Hyperdense material in the renal collecting systems may represent prior contrast menstruation or debris. 4. Benign left adrenal adenoma. Electronically signed by: Kings Ramos M.D. 08/08/2017 12:55 PM Dictated Date/Time: 08/08/2017 12:41 PM
[2017-08-08 14:45] VITALS: BP 137/78; PULSE 70; TEMP 36.1; O2SAT 99
[2017-08-08 15:07] VITALS: BP 145/75; PULSE 73; O2SAT 97
--- NOTE | 2017-08-08 16:16 | Discharge Instructions ---
Discharge Instructions Date of Service Aug 08, 2017. Admission Reason for Admission: Hemorrhagic Stroke Discharge Discharge Diagnosis / Problem: intracranial bleed, see below; lung cancer Discharge Goals Goal(s): Diagnostic testing Activity Recommendations Activity Level: Assistance Required Therapies: Physical Therapy, Occupational Therapy . Additional Information Patient informed of condition: Yes Advance Directives: Yes DNR: Yes Level of Care: Skilled Communicable Disease: No Prognosis: Other (see below) Instructions / Follow-Up Instructions / Follow-Up intracranial bleed -after further review, it appears that this is subacute; CT at admission and MRI follow up almost 24 hours later shows no expansion. likely spontaneous and relates to underlying connective tissue in her brain w age/dementia. given "soft" data of increased risk of ICH in elderly with markedly suppressed cholesterols, and no lipid panel to reference, will hold statin for now -hold aspirin -follow BP - although she's not been hypertensive here; would treat if needed -extensive discussions - right now there are no indications for neurosurgery, but even if there were, she would not want surgical intervention. therefore clinical monitoring, medical management as above, and watchful waiting are the agreed upon course of action. right now she does not want any scheduled imaging to follow up on the bleed, can be sought electively if it appears clinically warranted, or if her situation or desires change lung cancer -has 2.6cm spiculated lesion, but no satellite lesions, overt mediastinal adenopathy, or bony mets (therefore intracranial bleed likely spontaneous venous or capillary rather than bleeding into metastasis) -does not want surgery or chemotherapy -discussed elective discussion with radiation oncology in regards to options in this respect Current Hospital Diet Patient's current hospital diet: Regular Diet Discharge Diet Recommended Diet: Regular Diet Pending Studies Studies pending at discharge: no Medical Emergencies . Who to Call and When: Medical Emergencies: If at any time you feel your situation is an emergency, please call 911 immediately. . Non-Emergent Contact Non-Emergency issues call your: Primary Care Provider . . "Provider Documentation" section prepared by Lokesh Butler. . Core Measure Problem Core Measures: Stroke Stroke Core Measures Reason no t-PA for Stroke: Contraindicated Reason no antithrom by day 2: Contraindicated Reason no antithrom at D/C: Contraindicated Reason no statin at D/C: Contraindicated Reason no anticoag w/a fib: Treatment not indicated
--- NOTE | 2017-08-08 16:17 | Discharge Instructions ---
Discharge Instructions Date of Service Aug 08, 2017. Admission Reason for Admission: Hemorrhagic Stroke THIS SET OF INSTRUCTIONS IS ESSENTIALLY DUPLICATE AND OPENED/SIGNED TO FULFILL QUALITY MEASURE REQUIREMENTS FOR STROKE. THE MEANINGFUL DISCHARGE INSTRUCTIONS FOR TRANSFER TO THE [facility] ARE IN THE "TRANSFER INSTITUTION NONACUTE" INSTRUCTIONS, THANK YOU. Discharge Discharge Diagnosis / Problem: hemorrhagic stroke Discharge Goals Goal(s): Diagnostic testing Activity Recommendations Activity Limitations: resume your previous activity . Instructions / Follow-Up Instructions / Follow-Up Risk Factors for Stroke: You can reduce your chances of stroke by working with your medical provider to adopt a healthy lifestyle. Some specific ways to lower your chance of stroke are: * If you are a smoker, now is the time to stop smoking cigarettes * If you are diabetic, improve the control of your blood sugars * Avoid excessive amounts of alcohol * Control high blood pressure * Lose weight if you are overweight * Be sure to lead an active lifestyle * Eat a healthy diet low in salt, cholesterol and fat You should know about other risk factors for stroke that you are unable to control. These include: * Age 55 years or older * Male gender * Certain racial groups: , or / * Family History of Stroke, Mini stroke or Heart Attack * Sickle Cell Disease Follow Up: It is important for you to keep your follow up appointments with your medical provider. Current Hospital Diet Patient's current hospital diet: Regular Diet Discharge Diet Recommended Diet: Regular Diet Pending Studies Studies pending at discharge: no Medical Emergencies . Who to Call and When: Medical Emergencies: Call 911 immediately if you experience any of the following warning signs and symptoms of Stroke: * Sudden numbness or weakness of the face, arm or leg, especially on one side of the body * Sudden confusion, trouble speaking or understanding * Sudden trouble seeing in one or both eyes * Sudden trouble walking, dizziness, loss of balance or coordination * Sudden severe headache with no cause Do not delay calling 911 if you experience any warning signs or symptoms of a stroke. Delay in seeking medical attention may affect what treatments can be given to you. . Non-Emergent Contact Non-Emergency issues call your: Primary Care Provider . . "Provider Documentation" section prepared by Lokesh Butler. . Stroke Core Measures Reason no t-PA for Stroke: Contraindicated Reason no antithrom by day 2: Contraindicated Reason no antithrom at D/C: Contraindicated Reason no statin at D/C: Contraindicated Reason no anticoag w/a fib: Treatment not indicated VTE Core Measure Inpt VTE Proph given/why not?: Contraindicated
[2017-08-08 16:24] VITALS: BP 145/75; PULSE 73; TEMP 36.1; O2SAT 97
--- NOTE | 2017-08-08 19:53 | Discharge Summary ---
Discharge Summary Date of Service Aug 08, 2017. Discharge Summary Admission Date: Aug 07, 2017 at 14:55 Discharge Date: Aug 08, 2017 Discharge Disposition: assisted facility Principal Diagnosis: ICH, lung mass Problems/Secondary Diagnoses: (1) Alzheimer disease Status: Chronic Procedures: BRAIN COMBO CLINICAL HISTORY: compare to lesions on CT, ?mets w bleed? Mental status changes COMPARISON STUDY: CT 08/07/2017 TECHNIQUE: Utilizing a 1.5 Maira magnet and dedicated coil, multiplanar, multiecho imaging of the brain was performed pre and postcontrast administration. IV administration of 9.0 mL of Gadavist contrast was uneventful. FINDINGS: Findings of an acute/subacute hemorrhage measuring 4.5 cm left posterior parietal lobe. Mild localized reactive edema. No significant midline shift. Partial effacement occipital horn left lateral ventricle. Moderate to rather significant chronic small vessel change throughout both cerebral hemispheres. Sella and parasellar regions are unremarkable. Internal artery canals are symmetric. Small additional focus of increased signal right superior parietal lobe felt to be secondary to a small benign venous angioma. Postcontrast images demonstrate a trace of peripheral enhancement of the posterior left parietal hemorrhagic focus. This may relate relate to reactive gliosis. A small focus of postcontrast enhancement posterior zaida is also seen on the T1 images and is not felt to represent an enhancing lesion. Mild ventricular prominence presumably chronic. Transaxial T1 images suggests a possible high signal focus posterior left parietal lobe. There is no significant postcontrast enhancement at this site. IMPRESSION: 1. 4.5 cm fluid/blood containing lesion posterior left parietal lobe. 2. The contained hemorrhage appears to be subacute 3. Additional findings and base of the patient's prior CT study appear to relate to a venous angioma over the right parietal convexity. 4. All of these findings may relate to a simple hemorrhagic focus, the possibility of hemorrhage into a pre-existing cystic neoplasm is not excluded. 5. Neurosurgical consultation or close repeat scanning is suggested The above report was generated using voice recognition software. It may contain grammatical, syntax or spelling errors. Electronically signed by: Maxim Fonseca M.D. 08/08/2017 12:39 PM --- (CHEST) THORAX WITHOUT CLINICAL HISTORY: 77 years-old Female presenting with compare to CXR, ?mass. TECHNIQUE: Multidetector CT imaging of the chest was performed without the use of intravenous contrast. IV contrast: None. A dose lowering technique was used consistent with the principles of ALARA (as low as reasonably achievable). COMPARISON: 08/07/2017 and 02/10/2015. CT DOSE (mGy.cm): The estimated cumulative dose is 231.72 mGy.cm. FINDINGS: Nurse General Duty topogram: Left midlung opacity. On soft tissue windows, normal thyroid and thoracic inlet. No axillary, supraclavicular, or mediastinal lymphadenopathy. Evaluation of the jean limited without intravenous contrast. Coronary artery and aortic valve calcification. Normal heart size. No pericardial or pleural effusion. Hepatic steatosis. Calcification in the kidneys appears to primarily consist of renal vascular calcification. Hyperdense material in the collecting systems may represent prior contrast administration or debris (series 4 image 306). Nonspecific nodular thickening of the left adrenal gland. An underlying nodule in the medial limb is likely present measuring 19 mm and consistent with a benign adenoma by density. On lung windows, spiculated cavitary nodule in the left upper lobe, which measures 2.6 cm. Spiculations extend nearly to the overlying pleura and towards the superior portion of the left jean. Bronchial wall thickening, worst in the left upper lobe. Dependent changes likely atelectasis. No other focal nodule or infiltrate. Underlying emphysema. On bone windows, normal osseous structures. IMPRESSION: 1. Cavitary spiculated 2.6 cm nodule in the left upper lobe, which is consistent with primary bronchogenic carcinoma. No additional nodule. Evaluation for hilar lymphadenopathy limited due to noncontrast technique. No gross evidence of mediastinal lymphadenopathy. 2. Hepatic steatosis. 3. Hyperdense material in the renal collecting systems may represent prior contrast menstruation or debris. 4. Benign left adrenal adenoma. Electronically signed by: Kings Ramos M.D. 08/08/2017 12:55 PM Last Resulted CBC 08/08/17 06:53 Last Resulted BMP 08/08/17 06:53 Consultations: neuro Medication Reconciliation Continued Medications: Donepezil HCl (Donepezil HCl) 10 Mg Tab 10 MG PO DAILY Multiple Vitamins W/ Minerals (Multi For Her 50+) 1 Cap Cap PO DAILY Discontinued Medications: Aspirin (Aspirin) 81 Mg Tab 81 MG PO DAILY Simvastatin (Zocor) 20 Mg Tab 20 MG PO QPM, TAB Discharge Exam Physical Exam: General Appearance: no apparent distress Eyes: EOMI ENT: hearing grossly normal Neck: trachea midline Respiratory/Chest: no respiratory distress, no accessory muscle use Extremities: normal inspection Neurologic/Psychiatric: 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 CT chest w evidence of malignancy, but small enough and without adenopathy that it's likely unrelated to ICH and is an incidental finding extensive and repeated discussions for ICH - likely spontaneous due to age/dementia influence on brain tissue. stop asa, stop statin (since limited evidence suggests increased risk of ICH when lipids very suppressed - no lipid panel available so holding to be safe). she would not want neurosurgery even in life saving crisis type situation -- and currently with fairly minimal neuro deficits likely would not be appropriate for surgery at this time anyway. because she would not want any further interventions, we discussed general lack of utility in follow up imaging and pt/dtr elected to forego any f/u imaging since she would not want treatment regardless of findings. continue to stay off asa, and would also avoid NSAIDs due to possible antiplatelet effect. for now hold statin given above. lung cancer -appearing small and nonmetastatic. unlikely related to ICH. she would not want surgery or chemo. discussed electively discussing with radiation oncology in case a need would arise for palliative radiation for symptom relief. right now no symptoms, no urgency, but discussed would likely be better to discuss before any sx would develop due to not wanting any further interventions, no significant distress/pain, and clearly as best she can understands risks/benefits, and daughter very clearly and very well understands risks/benefits and ability to apply pt's values and desires to her current situation [facility] Time Spent: Greater than 30 minutes (3 visits, probably at least an hour in the room) This includes examination of the patient, discharge planning, medication reconciliation, and communication with other providers. Discharge Instructions Please refer to the electronic Patient Visit Report (Discharge Instructions) for additional information. Additional Copies To [facility]
== END 2017-08-08 17:04 | DRG 64 ==
LOC: C.EDB 12:18 → C.4E 14:55 → ENRESERV 15:30
PROVIDERS: ADMIT Internal Medicine; ATTEND Family Medicine
DX: I62.9 Nontraumatic intracranial hemorrhage, unspecified (principal); G93.40 Encephalopathy, unspecified; Z85.038 Personal history of other malignant neoplasm of large intestine; Z87.891 Personal history of nicotine dependence; Z79.82 Long term (current) use of aspirin; F03.90 Unspecified dementia, unspecified severity, without behavioral disturbance, psychotic disturbance, mood disturbance, and anxiety; R91.8 Other nonspecific abnormal finding of lung field